=== PATIENT | male | born 1980 | race Caucasian/White ===

== ENCOUNTER 2019-02-21 20:02 | Emergency (ER) | payer SELFPAY ==
[2019-02-21] MEDS ORDERED: Proparacaine 0.5% Ophth Soln 15 ML Bottle ONE (20:06)
[2019-02-21] MEDS ORDERED: Proparacaine 0.5% Ophth Soln 15 ML Bottle EYERT ONE (20:15)
[2019-02-21] MEDS ORDERED: Fluorescein 1 MG Ophth Strip EYERT ONE (21:48)
[2019-02-21] MEDS ORDERED: Erythromycin Base 0.5% Ophth Oint 1 GM Tube EYERT ONE (22:49)
--- NOTE | 2019-02-21 22:52 | EDM.PDOC ---
ED HPI GENERAL MEDICAL PROBLEM - General Chief Complaint: Eye Problems Stated Complaint: GOT METAL IN RIGHT EYE Time Seen by Provider: 02/21/19 20:48 - History of Present Illness INITIAL COMMENTS - FREE TEXT/NARRATIVE: 38-year-old male presents the emergency room with something in his right eye. Several hours ago the patient was grinding some pipe in an awkward position and got something underneath his protective eye gear. He has an irritation in his eye every time he blinks and he has some discomfort near the middle of his eye. The patient has not had significant vision changes with this. Right Eye Pain Score (Numeric/FACES): 1 - Related Data Allergies Allergy/AdvReac Type Severity Reaction Status Date / Time No Known Allergies Allergy Verified 02/21/19 20:20 Home Meds: Home Meds . [No Known Home Meds] 02/21/19 [History] Past Medical History - Past Health History Medical/Surgical History: Denies Medical/Surgical History Social & Family History - Tobacco Use Smoking Status *Q: Current Every Day Smoker Years of Tobacco use: 15 Packs/Tins Daily: 1 - Caffeine Use Caffeine Use: Reports: Coffee, Soda - Recreational Drug Use Recreational Drug Use: No Recreational Drug Type: Reports: Marijuana/Hashish ED ROS GENERAL - Review of Systems Review Of Systems: See Below Constitutional: Reports: No Symptoms HEENT: Reports: Eye Pain Respiratory: Reports: No Symptoms Cardiovascular: Reports: No Symptoms GI/Abdominal: Reports: No Symptoms ED EXAM GENERAL W FULL EYE - Physical Exam Exam: See Below Exam Limited By: No Limitations General Appearance: Alert, No Apparent Distress Eyelids: Right: Erythema (Mild), Foreign Body, Lid Everted for Exam, Left: Normal Appearance Conjunctiva & Sclera: Right: Injected (Mild), Left: Normal Appearance Cornea Exam: Right: Foreign Body (Tiny foreign body without evidence of a rust ring at the 8 o'clock position) Extraocular Movements: Bilateral: Intact Pupils: Normal Accommodation Anterior Chamber: Right: Normal Appearance Head: Atraumatic, Normocephalic Neck: Normal Inspection, Supple, Non-Tender, Full Range of Motion Respiratory/Chest: No Respiratory Distress, Lungs Clear, Normal Breath Sounds Cardiovascular: Normal Peripheral Pulses, Regular Rate, Rhythm, No Edema ED EYE w/ Add Procedure - Eye Procedure Alcaine Drops Administered: No (Proparacaine drops used) Eye FB Removal: Other (Removed with the guidance of the slit-lamp) Antibiotic Oinment/Drps Admin: Right Eye Progress: Slit-lamp exam was done after the eyes lids were everted looking for foreign bodies and he had a tiny little foreign body that looks like debris from the grinding wheel it was not metallic. This was removed with the eye spud without difficulty. Course - Vital Signs Last Recorded V/S: Last Vital Signs Temp 36.4 C 02/21/19 20:20 Pulse 61 02/21/19 20:20 Resp 20 02/21/19 20:20 BP 122/84 02/21/19 20:20 Pulse Ox 98 02/21/19 20:20 - Orders/Labs/Meds Meds: Medications Discontinued Medications Generic Name Dose Route Start Last Admin Trade Name Linda PRN Reason Stop Dose Admin Erythromycin 1 gm 02/21/19 22:49 Erythromycin 0.5% Ophth Oint EYERT 02/21/19 22:50 ONETIME ONE Fluorescein Sodium 1 mg 02/21/19 21:48 02/21/19 22:16 Ful-Naina EYERT 02/21/19 21:49 1 mg ONETIME ONE Administration Proparacaine HCl Confirm 02/21/19 20:06 02/21/19 20:56 Proparacaine 0.5% Ophth Soln Administered 02/21/19 20:07 Not Given Dose 15 ml .ROUTE .STK-MED ONE Proparacaine HCl 2 ml 02/21/19 20:15 02/21/19 20:25 Proparacaine 0.5% Ophth Soln EYERT 02/21/19 20:16 2 drop ONETIME ONE Administration Departure - Departure Time of Disposition: 22:51 Disposition: DC/Tfer to Hospice - Home 49 Clinical Impression: Corneal foreign body - Discharge Information Instructions: Eye Foreign Body, [id number] Referrals: 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 Use the erythromycin ointment every few hours while you are awake through the night tonight. Follow-up with your eye doctor tomorrow. Sepsis Event Note - Evaluation Sepsis Screening Result: No Definite Risk - Focused Exam Vital Signs: Vital Signs Temp Pulse Resp BP Pulse Ox 02/21/19 20:20 36.4 C 61 20 122/84 98 Date Exam was Performed: 02/21/19 Time Exam was Performed: 22:53
== END 2019-02-21 22:56 | disposition home or self-care (01) ==
LOC: JD.ED 20:02
DX: T15.01XA Foreign body in cornea, right eye, initial encounter (principal); F17.210 Nicotine dependence, cigarettes, uncomplicated
CPT/HCPCS: 65222; 99284; A9270; 99282